=== PATIENT | male | born 1980 | race American Indian/Alaskan Native ===

== ENCOUNTER 2021-01-18 09:26 | Emergency (ER) | payer SELFPAY ==
[2021-01-18] MEDS ORDERED: IPRATROPIUM 0.02% NEBU 2.5 ML IH ONE (10:15)
[2021-01-18] MEDS ORDERED: ALBUTEROL 2.5 MG/3 ML NEBU IH ONE (10:15)
--- NOTE | 2021-01-18 10:39 | Emergency Department Report ---
ED Shortness of Breath HPI - General Chief Complaint: Dyspnea/Respdistress Stated Complaint: TROUBLE BREATHING Time Seen by Provider: 01/18/21 10:11 Source: patient Mode of arrival: Ambulatory Limitations: No Limitations - History of Present Illness Initial Comments: Patient presents with a weeklong history of shortness of breath. He has had a cough which is nonproductive. There is no fevers or chills. Has had no vomiting or diarrhea. He does describe shortness of breath more on a supine position. He has never had symptoms like this before. He does not have a long history. Patient has no history of recent travel or trauma. Has had no sick contacts. He has had no muscle aches or body aches. He has had no known exposure to coronavirus or influenza. - Related Data Previous Rx's Medication Instructions Recorded Last Taken Type Albuterol Sulfate [Proair 90 mcg IH QID #1 aer.pow.ba 01/18/21 Unknown Rx Respiclick] predniSONE [Deltasone] 50 mg PO QDAY #5 tab 01/18/21 Unknown Rx Allergies Allergy/AdvReac Type Severity Reaction Status Date / Time shellfish derived AdvReac Anaphylaxis Verified 01/18/21 09:30 ED Review of Systems ROS: Stated complaint: TROUBLE BREATHING Other details as noted in HPI Comment: All other systems reviewed and negative Constitutional: denies: fever Eyes: denies: vision change ENT: denies: throat pain Respiratory: see HPI Cardiovascular: chest pain (He does describe a sharp chest pain with inspiration radiating through to his back.) Endocrine: denies: unexplained weight loss Gastrointestinal: denies: abdominal pain Genitourinary: denies: dysuria Musculoskeletal: denies: back pain Skin: denies: rash Neurological: denies: headache Hematological/Lymphatic: denies: easy bruising ED Past Medical Hx - Past Medical History Previous Medical History?: No - Family History Family history: no significant - Social History Smoking Status: Current Every Day Smoker (We discussed tobacco cessation x3 minutes) - Medications Home Medications: Home Medications Medication Instructions Recorded Confirmed Last Taken Type Albuterol Sulfate [Proair 90 mcg IH QID #1 aer.pow.ba 01/18/21 Unknown Rx Respiclick] predniSONE [Deltasone] 50 mg PO QDAY #5 tab 01/18/21 Unknown Rx ED Physical Exam - General Limitations: No Limitations, Other (Pulse ox was 95% and normal.) General appearance: alert, in distress (Mild) - Head Head exam: Present: atraumatic, normocephalic, normal inspection - Eye Eye exam: Present: normal appearance, EOMI. Absent: scleral icterus - ENT ENT exam: Present: normal exam, normal orophraynx, normal external ear exam - Neck Neck exam: Present: normal inspection. Absent: meningismus - Respiratory Respiratory exam: Present: respiratory distress (Mild), wheezes (Bilateral) - Cardiovascular Cardiovascular Exam: Present: normal rhythm, tachycardia - GI/Abdominal GI/Abdominal exam: Present: soft. Absent: tenderness - Extremities Exam Extremities exam: Present: normal capillary refill. Absent: pedal edema, calf tenderness - Back Exam Back exam: Absent: CVA tenderness (R), CVA tenderness (L) - Neurological Exam Neurological exam: Present: alert, oriented X3, CN II-XII intact. Absent: motor sensory deficit - Psychiatric Psychiatric exam: Present: normal affect, normal mood ED Course Vital Signs 01/18/21 01/18/21 01/18/21 09:30 09:48 10:01 Temperature 97.9 F Pulse Rate 117 H 87 Respiratory 20 15 Rate Blood Pressure 146/110 159/106 Blood Pressure [Left] O2 Sat by Pulse 95 95 93 Oximetry 01/18/21 01/18/21 01/18/21 10:15 10:31 10:45 Temperature Pulse Rate 89 86 84 Respiratory 15 20 17 Rate Blood Pressure 143/87 143/87 134/86 Blood Pressure [Left] O2 Sat by Pulse 95 93 94 Oximetry 01/18/21 01/18/21 01/18/21 10:49 11:01 11:15 Temperature Pulse Rate 84 77 82 Respiratory 17 16 19 Rate Blood Pressure 134/86 137/94 Blood Pressure 134/86 [Left] O2 Sat by Pulse 94 94 93 Oximetry 01/18/21 01/18/21 01/18/21 11:31 11:45 11:53 Temperature Pulse Rate 88 81 Respiratory 16 12 18 Rate Blood Pressure 137/94 116/73 Blood Pressure [Left] O2 Sat by Pulse 98 100 94 Oximetry - Reevaluation(s) Reevaluation #1: 01/18/21 10:38 Continuous neb and chest x-ray have been ordered. Old records reviewed. Reevaluation #2: 01/18/21 11:37 Chest x-ray was noted. Patient was improved. Nebs have been completed and the patient was discharged. ED Medical Decision Making - Radiology Data Radiology results: report reviewed - Medical Decision Making Patient presented secondary to shortness of breath. He was wheezing. There is no radiographic evidence of pneumonia. He certainly did not have radiographic evidence suggestive of pulmonary edema or coronavirus. He does not have a history of aspiration or choking. Patient does not appear to be toxic. He has no chest pain. I do not believe this represents cardiogenic wheezing. There is no history of recent opioid or aspirin ingestion. I do not believe this represents flash pulmonary edema. He was treated symptomatically and referred for outpatient evaluation and follow-up. Critical Care Time: No Critical care attestation.: If time is entered above; I have spent that time in minutes in the direct care of this critically ill patient, excluding procedure time. ED Disposition Clinical Impression: Wheezing, Shortness of breath Disposition: 01 HOME / SELF CARE / HOMELESS Is pt being admited?: No Condition: Stable Instructions: Shortness of Breath, Adult, Drnj-lj-Nxic, How to Use a Metered Do se Inhaler Additional Instructions: Drink plenty water. Avoid cigarettes. Use the inhaler at home. Follow-up with your regular doctor. If you do not have a regular doctor, follow-up with the referral physician. Return for any problems or concerns. Prescriptions: predniSONE [Deltasone] 50 mg PO QDAY #5 tab Albuterol Sulfate [Proair Respiclick] 90 mcg IH QID #1 aer.ba Referrals: PRIMARY [facility] [Referring] - 3-5 Days JUAN GARCIA MD [Staff Physician] - 3-5 Days
--- NOTE | 2021-01-18 11:11 | XRay Report ---
CHEST 2 VIEWS INDICATION / CLINICAL INFORMATION: Chest pain, shortness of breath. COMPARISON: None available. FINDINGS: SUPPORT DEVICES: None. HEART / MEDIASTINUM: No significant abnormality. LUNGS / PLEURA: No significant pulmonary abnormality. No significant pleural effusion. No pneumothora x. ADDITIONAL FINDINGS: No significant additional findings. IMPRESSION: 1. No acute abnormality of the chest. Signer Name: Wilberto Díaz MD Signed: 01/18/2021 11:07 AM Workstation Name: [id number]
[2021-01-18 11:53] VITALS: BP 116/73
== END 2021-01-18 12:15 | disposition home or self-care (01) ==
LOC: ED 09:26
DX: R06.2 Wheezing (principal); R06.02 Shortness of breath; R05.9 Cough, unspecified; F17.200 Nicotine dependence, unspecified, uncomplicated; Z79.899 Other long term (current) drug therapy
CPT/HCPCS: 71046; 94640; 99283

== ENCOUNTER 2021-02-06 22:46 | Emergency (ER) | payer SELFPAY ==
[2021-02-06 23:06] VITALS: BP 139/93
[2021-02-06] MEDS ORDERED: ALBUTEROL 2.5 MG/3 ML NEBU IH ONE (23:10)
[2021-02-06] MEDS ORDERED: predniSONE 20 MG TAB PO ONE (23:10)
[2021-02-06] MEDS ORDERED: IPRATROPIUM 0.02% NEBU 2.5 ML IH ONE (23:10)
--- NOTE | 2021-02-06 23:21 | Emergency Department Report ---
HPI - General Chief Complaint: Dyspnea/Respdistress Time Seen by Provider: 02/06/21 22:59 - HPI HPI: MSE 7 Patient is a 40-year-old male present with a chief complaint of shortness of breath. The patient reportedly has a recent history of reactive airway disease and was prescribed albuterol and prednisone approximate 2 weeks ago. The patient states he was only able to afford the steroids so he does not have an inhaler. He states his applied an insecticide in the home today and he believes this triggered his reactive airway disease. Patient states he developed shortness of breath and wheezing with a cough productive of clear sputum after being exposed to the insecticide. Patient denies history of fever. Patient denies sick contacts. Patient denies any recent flights or long car trips. The patient states he has not been vaccinated against Covid ED Past Medical Hx - Past Medical History Previous Medical History?: No Additional medical history: Reactive airway disease - Surgical History Past Surgical History?: No - Family History Family history: no significant - Social History Smoking Status: Current Every Day Smoker (5-7 cigarettes daily) Substance Use Type: Marijuana - Medications Home Medications: Home Medications Medication Instructions Recorded Confirmed Last Taken Type Albuterol Sulfate [Proair 90 mcg IH QID #1 aer.pow.ba 01/18/21 Unknown Rx Respiclick] predniSONE [Deltasone] 50 mg PO QDAY #5 tab 01/18/21 Unknown Rx Albuterol Mdi (or & Nicu Only) 2 puff IH QID PRN #8.5 gram 02/06/21 Unknown Rx [ProAir HFA Inhaler] Prednisone [predniSONE 10 mg 10 mg PO .TAPER #1 tab.ds.pk 02/06/21 Unknown Rx (6-Day Pack, 21 Tabs)] ED Review of Systems ROS: Stated complaint: SHORTNESS OF BREATH Other details as noted in HPI Constitutional: denies: fever Eyes: denies: eye pain ENT: denies: throat pain Respiratory: cough, shortness of breath, wheezing Endocrine: no symptoms reported Gastrointestinal: denies: abdominal pain Genitourinary: denies: dysuria Musculoskeletal: myalgia Neurological: denies: headache Physical Exam - Physical Exam Vital Signs: Vital Signs 02/06/21 22:54 Temperature 98.5 F Pulse Rate 104 H Respiratory 18 Rate Blood Pressure 139/93 O2 Sat by Pulse 95 Oximetry Physical Exam: GENERAL: The patient is well-developed well-nourished male sitting on stretcher not appearing to be in acute distress. [] HEENT: Normocephalic. Atraumatic. Extraocular motions are intact. Patient has moist mucous membranes. NECK: Supple. Trachea midline CHEST/LUNGS: Mild wheezing diffusely HEART/CARDIOVASCULAR: Regular. There is no tachycardia. There is no gallop rub or murmur. ABDOMEN: Abdomen is soft, nontender. Patient has normal bowel sounds. There is no abdominal distention. SKIN: There is no rash. There is no edema. There is no diaphoresis. NEURO: The patient is awake, alert, and oriented. The patient is cooperative. The patient has no focal neurologic deficits. The patient has normal speech. G CS 15 MUSCULOSKELETAL: There is no evidence of acute injury. ED Course Vital Signs 02/06/21 22:54 Temperature 98.5 F Pulse Rate 104 H Respiratory 18 Rate Blood Pressure 139/93 O2 Sat by Pulse 95 Oximetry - Reevaluation(s) Reevaluation #1: 02/07/21 00:18 Patient states he feels improved and is comfortable going home ED Medical Decision Making - Radiology Data Radiology results: report reviewed (Chest x-ray), image reviewed (Chest x-ray) interpreted by me: Chest x-ray-no definite focal infiltrate. No pneumothorax [facility] [address] [place] [address] XRay Report Signed Patient: BOBBY SHAFFER JR MR#: [id number] : 1980 Acct:[id number] Age/Sex: 40 / M ADM Date: 02/06/21 Loc: ED Attending Dr: Ordering Physician: REHANA THOMAS MD Date of Service: 02/06/21 Procedure(s): XR chest routine 2V Accession Number(s): [id number] cc: REHANA THOMAS MD Fluoro Time In Minutes: CHEST 2 VIEWS INDICATION / CLINICAL INFORMATION: Shortness of breath, cough. COMPARISON: 01/18/21 FINDINGS: SUPPORT DEVICES: None. HEART / MEDIASTINUM: No significant abnormality. LUNGS / PLEURA: No significant pulmonary or pleural abnormality. No pneumothorax. ADDITIONAL FINDINGS: No significant additional findings. IMPRESSION: 1. No acute findings. No change. Signer Name: Raffi Flores MD Signed: 02/06/2021 11:41 PM Workstation Name: [id number] Transcribed By: DT Dictated By: Darryn Flores MD Electronically Authenticated By: Darryn Flores MD Signed Date/Time: 02/06/212340 DD/ 39 TD/TT: Print Cancel - Differential Diagnosis Reactive airway disease, pneumonia, bronchitis Critical care attestation.: If time is entered above; I have spent that time in minutes in the direct care of this critically ill patient, excluding procedure time. ED Disposition Clinical Impression: Reactive airway disease Disposition: HOME / SELF CARE / HOMELESS Is pt being admited?: No Does the pt Need Aspirin: No Condition: Stable Instructions: Asthma, Adult, [id number] Additional Instructions: Return to the emergency department should you develop worsening symptoms, inab ility to tolerate food or liquids, high fever or any other concerns Prescriptions: Prednisone [predniSONE 10 mg (6-Day Pack, 21 Tabs)] 10 mg PO .TAPER #1 tab.ds.pk Albuterol Mdi (or & Nicu Only) [ProAir HFA Inhaler] 2 puff IH QID PRN #8.5 gram PRN Reason: Shortness Of Breath Referrals: [facility] [Provider Group] - 3-5 Days Time of Disposition: 00:19
--- NOTE | 2021-02-06 23:45 | XRay Report ---
CHEST 2 VIEWS INDICATION / CLINICAL INFORMATION: Shortness of breath, cough. COMPARISON: 01/18/21 FINDINGS: SUPPORT DEVICES: None. HEART / MEDIASTINUM: No significant abnormality. LUNGS / PLEURA: No significant pulmonary or pleural abnormality. No pneumothorax. ADDITIONAL FINDINGS: No significant additional findings. IMPRESSION: 1. No acute findings. No change. Signer Name: Raffi Flores MD Signed: 02/06/2021 11:41 PM Workstation Name: [id number]
== END 2021-02-07 00:50 | disposition home or self-care (01) ==
LOC: ED 22:46
DX: J45.909 Unspecified asthma, uncomplicated (principal); F17.210 Nicotine dependence, cigarettes, uncomplicated; F12.90 Cannabis use, unspecified, uncomplicated; Z91.013 Allergy to seafood; Z79.899 Other long term (current) drug therapy
CPT/HCPCS: 71046; 94640; 99283; J7512; 94644